=== PATIENT | female | born 1960 | race Caucasian/White ===

== ENCOUNTER 2016-10-11 09:18 | Outpatient (CLI) | payer BC | END 2016-10-11 09:19 | disposition home or self-care (01) | DX: M85.89 Other specified disorders of bone density and structure, multiple sites (principal); Z92.241 Personal history of systemic steroid therapy ==

== ENCOUNTER 2016-10-11 09:19 | Outpatient (CLI) | payer BC | END 2016-10-11 09:20 | disposition home or self-care (01) | DX: Z12.31 Encounter for screening mammogram for malignant neoplasm of breast (principal) ==

== ENCOUNTER 2017-07-05 08:04 | Outpatient (CLI) | payer BC ==
--- NOTE | 2017-07-05 23:59 | Ultrasound Report ---
EXAM: PELVIC ULTRASOUND EXAM DATE: 07/05/2017 08:43 AM. CLINICAL HISTORY: Post menopausal bleeding. LMP 6 years ago. On hormone replacement therapy x5 years. COMPARISON: CT abdomen/pelvis 11/04/2014. Pelvic ultrasound 05/21/2014. TECHNIQUE: Realtime transabdominal pelvic scan performed to identify the uterus and adnexa and as an overview of other pelvic structures, followed by transvaginal scan to provide greater detail of the u terus and adnexa, with static image documentation. FINDINGS: Uterus: Anteverted position. 9.1 x 4.0 x 4.9 cm, volume 93 cc. Endometrium: 6 mm, mildly thickened (previously 3 mm on 05/21/2014). No abnormal vascularity or discr ete mucosal lesion. Cervix: Tiny nabothian cysts. Right Ovary/Adnexa: Not seen transabdominally or transvaginally. Unremarkable appearance of the adnex a. Left Ovary/Adnexa: Not seen transabdominally or transvaginally. Unremarkable appearance of the adnexa . Free Fluid: None. Other: None. IMPRESSION: 1. Mildly thickened endometrium in setting of postmenopausal bleeding. Recommend direct evaluation. 2. The ovaries were not visualized. [facility] Referring Provider Line: [phone] SITE ID: [id number]
== END 2017-07-05 08:05 | disposition home or self-care (01) ==
LOC: DI 08:04
PROVIDERS: ATTEND Physician Assistant
DX: R93.8 Abnormal findings on diagnostic imaging of other specified body structures (principal)
CPT/HCPCS: 76830; 76856

== ENCOUNTER 2017-11-21 15:37 | Outpatient (CLI) | payer BC ==
--- NOTE | 2017-11-24 13:40 | Mammography Report ---
DIGITAL SCREENING MAMMOGRAM: 11/21/2017 CLINICAL INDICATION: A 57-year-old for screening. COMPARISON: 09/2016, 07/2015, 02/2014, 02/2013. TECHNIQUE: Routine CC and MLO projections as well as bilateral laterally exaggerated craniocaudal views were obtained of the breasts. FINDINGS: Parenchymal tissue within both breasts is heterogeneously dense, which may lower the sensitivity of mammography; however, there are no dominant masses, suspicious microcalcifications, or secondary signs of malignancy. In comparison to the previous studies, there are no significant changes. IMPRESSION: NO MAMMOGRAPHIC EVIDENCE OF MALIGNANCY. NO SIGNIFICANT INTERVAL CHANGES. RECOMMENDATION: Screening mammography is recommended annually. BIRADS CATEGORY 1 - NEGATIVE. STANDARD QUALIFYING STATEMENTS: 1. This examination was reviewed with the aid of Computed-Aided Detection (CAD). 2. A negative or benign imaging report should not delay biopsy if clinically suspicious findings are present. Consider surgical consultation if warranted. More than 5% of cancers are not identified by imaging. 3. Dense breasts may obscure an underlying neoplasm. TD: 11/24/2017 13:39
== END 2017-11-21 15:38 | disposition home or self-care (01) ==
LOC: DI.S 15:37
PROVIDERS: ATTEND Physician Assistant
DX: Z12.31 Encounter for screening mammogram for malignant neoplasm of breast (principal)
CPT/HCPCS: 77067